=== PATIENT | male | born 1960 | race Caucasian/White ===

== ENCOUNTER 2018-11-17 19:51 | Emergency (ER) | payer MEDICAID ==
[~2018-11-17] VITALS: Ht 177.8 cm; Wt 115.7 kg
[2018-11-17] MEDS ORDERED: LIPITOR20 MG (20:01)
[2018-11-17] MEDS ORDERED: LOSARTAN POTASS50 MG PO (20:01)
--- OUTSIDE RECORDS SUMMARY | 2018-11-17 22:32 | XMS ---
PreManage Notification: RANJAN LEW Security [address] Magistrate Events No recent Security Events currently on file CRITERIA MET - PDMP CARE PROVIDERS [place] [facility] Unknown [facility] PHONE: [phone] Daniela has no Care Guidelines for this patient. EMaría VISIT COUNT (12 MO.) 1 YARA Ruiz TOTAL 1 NOTE: Visits indicate total known visits. ED/UCC VISIT TRACKING (12 MO.) 11/17/2018 19:[address] [facility] [place] TYPE: Emergency COMPLAINT: - FALL INPATIENT VISIT TRACKING (12 MO.) No inpatient visits to display in this time frame [email or web address]
== END 2018-11-17 21:43 | disposition home or self-care (01) ==
LOC: ED 19:51
DX: S06.0X0A Concussion without loss of consciousness, initial encounter (principal); I10 Essential (primary) hypertension; E78.00 Pure hypercholesterolemia, unspecified; Z88.2 Allergy status to sulfonamides; Z79.899 Other long term (current) drug therapy; W00.0XXA Fall on same level due to ice and snow, initial encounter
CPT/HCPCS: 70450; 99284-25